=== PATIENT | male | born 1950 | race Caucasian/White ===

== ENCOUNTER 2018-09-26 07:04 | Emergency (ER) | payer OTHER, MEDICARE ==
[2018-09-26] MEDS ORDERED: DOXYCYCLINE HYCLATE 100 MG TABLET PO ONE (07:27)
--- NOTE | 2018-09-26 07:28 | ER Document Report ---
ED General - General Chief Complaint: Insect Bite Stated Complaint: TICK BITE Time Seen by Provider: 09/26/18 07:26 Primary Care Provider: MADDY HOWARD [NO LOCAL MD] - Follow up as needed TRAVEL OUTSIDE OF THE [place] IN LAST 30 DAYS: No - HPI Notes: Patient is a 68-year-old male that presents to the emergency department for chief complaint of tick bite. Patient states he is been working outside all weekend. Yesterday afternoon he noticed what appears to be a tick in the end of his urethra. He reports he noticed it because he was having some dysuria and pressure when he was peeing at the end of his penis. He denies any penile discharge, abdominal pain, fevers chills, myalgias and rashes. He denies history of Lyme disease or tick bites in the past. He does state that he removed a tick from the right lateral side of his penis yesterday as well. He is not aware of any other ticks on him presently. Past Medical History: Negative Past Surgical History: Negative Social History: Occasional alcohol. Denies tobacco and drug use Family History: Reviewed and noncontributory for presenting illness Allergies: Reviewed, see documented allergy list. REVIEW OF SYSTEMS: CONSTITUTIONAL : No fever No chills No diaphoresis No recent illness EENT: No vision changes No congestion No sore throat CARDIOVASCULAR: No chest pain No palpitations RESPIRATORY: No shortness of breath No cough No difficulty breathing GASTROINTESTINAL: No abdominal pain No nausea No vomiting No diarrhea GENITOURINARY: Dysuria No dysuria No hematuria No difficulty urinating MUSCULOSKELETAL: No back pain No leg pain No arm pain SKIN: No rashes No lesions LYMPHATIC: No swollen, enlarged glands. NEUROLOGICAL: No lightheadedness No headache No weakness No paresthesias PSYCHIATRIC: No anxiety No depression PHYSICAL EXAMINATION: Vital signs reviewed, nursing noted reviewed. GENERAL: Well-appearing, well-nourished and in no acute distress. HEAD: Atraumatic, normocephalic. EYES: Eyes appear normal, extraocular movements intact, sclera anicteric, conjunctiva are normal. ENT: nares patent, oropharynx clear without exudates. Moist mucous membranes. NECK: Normal range of motion, supple without lymphadenopathy LUNGS: Breath sounds clear to auscultation bilaterally and equal. No wheezes rales or rhonchi. HEART: Regular rate and rhythm without murmurs ABDOMEN: Protuberant, soft, nontender, normoactive bowel sounds. No rebound, guarding, or rigidity. No masses appreciated. : No scrotal edema or erythema. No penile discharge. Small scab to right lateral aspect of the shaft of the penis. There is no apparent attached tick or lesion to patient's urethra EXTREMITIES: Nontender, good range of motion, no pitting or edema. NEUROLOGICAL: No focal neurological deficits. Moves all extremities spontaneously Motor and sensory grossly intact on exam. PSYCH: Normal mood, normal affect. SKIN: Warm, Dry, normal turgor - Related Data Allergies/Adverse Reactions: No Known Allergies Allergy (Verified 09/26/18 07:39) Past Medical History - Social History Smoking Status: Never Smoker Family History: Reviewed & Not Pertinent Physical Exam - Vital signs Vitals: Temp Pulse Resp BP Pulse Ox 98.4 F 70 18 161/79 H 97 09/26/18 07:16 09/26/18 07:16 09/26/18 07:16 09/26/18 07:16 09/26/18 07:16 Course - Re-evaluation Re-evalutation: 09/26/18 08:00 Vitals reviewed. Nursing notes reviewed. Patient does have a scab on the lateral aspect of his penis from the taking removed yesterday. I do not appreciate any retained tick in his urethra. There is no urethral discharge. Lyme titers have been obtained and patient was given a one-time prophylactic dose of 200 mg of doxycycline. He will be referred to urology for follow-up of the sensation if he continues to have issues. Patient counseled on return precautions and follow-up. He is stable at discharge. - Vital Signs Vital signs: Temp Pulse Resp BP Pulse Ox 98.4 F 70 18 161/79 H 97 09/26/18 07:16 09/26/18 07:16 09/26/18 07:16 09/26/18 07:16 09/26/18 07:16 Discharge - Discharge Clinical Impression: Tick bite Qualifiers: Encounter type: initial encounter Qualified Code(s): W57.XXXA - Bitten or stung by nonvenomous insect and other nonvenomous arthropods, initial encounter Condition: Stable Disposition: HOME, SELF-CARE Instructions: Tick Bites ([facility]) Additional Instructions: Please return to the emergency department if you have any worsening, or concern of your symptoms. Please return to the emergency department if you develop chest pain, difficulty breathing, severe abdominal pain, or ongoing vomiting. Please follow-up with your primary care physician in 2-3 days and any other recommended physicians. If prescribed, take all medications as directed. If you have any questions or concerns do not hesitate to return the emergency department for evaluation. If you continue to have difficulty urinating or feel like there is something in your urethra contact Dr. Greenfield, urology, for further evaluation and possible cystoscopy Referrals: MADDY HOWARD [NO LOCAL MD] - Follow up as needed CARLOS GREENFIELD MD [NO LOCAL MD] - Follow up as needed
[2018-09-26 08:26] VITALS: BP 148/78
[2018-09-29 15:44] LABS: LYME DISEASE IGM AB <0.80 index (0.00-0.79)
== END 2018-09-26 08:04 | disposition home or self-care (01) ==
LOC: ER 07:04
DX: S30.862A Insect bite (nonvenomous) of penis, initial encounter (principal); W57.XXXA Bitten or stung by nonvenomous insect and other nonvenomous arthropods, initial encounter; R30.0 Dysuria
CPT/HCPCS: 36415; 86617; 86618; 99282